=== PATIENT | male | born 1995 | race Asian ===

== ENCOUNTER 2018-10-08 00:35 | Emergency (ER) | payer MEDICAID ==
[~2018-10-08] VITALS: Ht 182.9 cm; Wt 77.0 kg
[2018-10-08 00:54] VITALS: BP 142/82
== END 2018-10-08 04:42 | disposition left against medical advice (07) ==
LOC: ER 00:35
DX: Z53.21 Procedure and treatment not carried out due to patient leaving prior to being seen by health care provider (principal)